=== PATIENT | male | born 1940 | race Caucasian/White ===

== ENCOUNTER 2017-05-10 10:19 | Observation (INO) | payer MEDICARE, BC ==
--- NOTE | 2017-05-10 11:13 | RAD ---
PORTABLE AP CHEST: Date: 05/10/17 HISTORY: Chest pain. FINDINGS: Cardiac silhouette is magnified by projection. Pulmonary vasculature is within normal limits. Lungs are clear. Thoracic aorta I mildly ectatic. Osseous structures are intact. IMPRESSION: No acute cardiopulmonary process. POS: [facility]
[2017-05-10 11:39] LABS: #Eosinphils 0.1 thou/uL (0.0-0.7); #Lymphocytes 1.2 thou/uL (1.20-3.40); #Monocytes 0.3 thou/uL (0.11-0.59); #Neutrophils 2.5 thou/uL (1.40-6.50); %Basophils 0.1 % (0.0-1.0); %Eosinophils 1.3 % (0.0-10.0); %Lymphocytes 28.5 % (21.0-51.0); %Monocytes 8.4 % (0.0-10.0); Hematocrit 45.2 % (42.0-52.0); Mean Platelet Volume 7.3 fL (7.4-10.4); Red Blood Cell (RBC) Count 4.51 mill/uL (4.70-6.10); White Blood Cell (WBC) Count 4.1 thou/uL (4.8-10.8)
[2017-05-10 12:02] LABS: ALT (SGPT) 27 U/L (8-55); AST (SGOT) 26 U/L (5-34); Alkaline Phosphatase 71 U/L (40-150); Anion Gap 12 mmol/L (10-20); BUN (Urea Nitrogen) 11 mg/dL (8.4-25.7); Bilirubin, Total 1.2 mg/dL (0.2-1.2); CK (CPK) 201 U/L (30-200); Calc. Creatinine Clearance 0 mL/min (70-130); Calcium 9.3 mg/dL (7.8-10.44); Carbon Dioxide 24 mmol/L (23-31); Chloride 108 mmol/L (98-107); Estimated GFR-MDRD 75; Globulin 2.9 g/dL (2.4-3.5); Lipase 24 U/L (8-78); Protein, Total 7.3 g/dL (5.8-8.1)
[2017-05-10 12:06] LABS: Troponin I Less than 0.010 ng/mL (< 0.028)
[2017-05-10] MEDS ORDERED: Ondansetron HCl/PF 4 MG/2 ML Vial IVP PRN ×2 (14:17→17:37)
[2017-05-10] MEDS ORDERED: Ondansetron ODT 4 MG TAB SL PRN (14:17)
[2017-05-10] MEDS ORDERED: Acetaminophen 325 MG TAB PO PRN ×2 (14:17→17:37)
[2017-05-10 15:13] LABS: Troponin I Less than 0.010 ng/mL (< 0.028)
[2017-05-10 15:31] VITALS: BMI 27.1
[2017-05-10] MEDS ORDERED: Bisacodyl 5 MG TAB PO PRN (17:37)
[2017-05-10] MEDS ORDERED: Ondansetron ODT 4 MG TAB PO PRN (17:37)
[2017-05-10] MEDS ORDERED: Nitroglycerin 0.4 MG TAB (25 Tab Bottle) PO PRN (17:37)
[2017-05-10 18:15] LABS: Troponin I Less than 0.010 ng/mL (< 0.028)
[2017-05-10] MEDS: Docusate 100 MG CAP PO SCH (20:22)
[2017-05-10] MEDS: Famotidine 20 MG TAB PO SCH (20:22)
--- NOTE | 2017-05-11 01:45 | CON ---
DATE OF CONSULTATION: 05/10/2017 REFERRING PROVIDER: Dr. Kj Taylor. REASON FOR CONSULTATION: Left hand weakness. HISTORY OF PRESENT ILLNESS: Mr. Ding is a pleasant 76-year-old male who has been concer valentine for evaluation of left-hand weakness. The patient reports that about a week ago, he started not icing pain on the left side of his chest. He states that there were no exacerbating factors for the pain. He also notes that the pain would get better after he eats. He says that he exercises on a daily basis and when he would run or jog or lift weights, he would not have any chest pain. The andreina n was more common when he would lie down on his back or on his left side and it would get better aft er when he turns toward his right side. He states that on Wednesday he started noticing weakness in his left hand. He was using chalk cutter to clip his nails and noticed that he was not able to use t he chalk cutter to press to cut the nails on his right hand. Today in the ER, he was noted that he w as not able to oppose his thumb to the fifth digit and I am being asked to further evaluate for this left-hand weakness. He denies headaches, vision changes, diplopia, ptosis, numbness, tingling in u pper or lower extremities. He denies any weakness in the right upper extremity or both lower extrem ities. He denies difficulty with balance, gait or difficulty with bowel or bladder. PAST MEDICAL HISTORY: Significant for high cholesterol. PAST SURGICAL HISTORY: Significant for right knee surgery and right arm surgery. SOCIAL HISTORY: Denies smoking, alcohol use, or illicit drug use. He is . He is retired. CURRENT MEDICATIONS: Please review MAR. ALLERGIES: No known drug allergies. FAMILY HISTORY: Noncontributory. REVIEW OF SYSTEMS: As mentioned above in the HPI, otherwise negative. PHYSICAL EXAMINATION: VITAL SIGNS: Blood pressure of 162/81, pulse of 66, temperature of 98.5, respirations of 16, O2 sat s of 93% on room air. GENERAL: Well-developed, well-nourished male in no apparent distress. RESPIRATORY: Clear to auscultation bilaterally. CARDIOVASCULAR: Regular rate and rhythm. NEUROLOGIC: Mental status: The patient is awake, alert, oriented x3. Speech and language: Fluent speech. Cranial nerves: Pupils are 3 mm and reactive. Visual castillo are intact. Extraocular mus cles are intact. No nystagmus is noted. Face is symmetric. Tongue and uvula are midline. Motor e xam showed normal tone and bulk with 5/5 strength in both upper and lower extremities except left AP B weakness was noted. He was also not able to oppose his thumb. Sensory: Sensation is intact and symmetric. Deep tendon reflexes: 2+ reflexes in both upper and lower extremities. Babinski: Plan tar responses flexion bilaterally. Coordination intact to [id number] tapping bilaterally. Maria Antonia's sign is negative. Gait and Romberg are normal. LABORATORY DATA: I reviewed which included CBC, CMP, CPK, troponin, CK-MB, which is significant for WBC of 4.1. CPK of 201, otherwise unremarkable. IMPRESSION: 1. Left-hand weakness. 2. Left-sided chest pain. Mr. Ding is a pleasant 76-year-old male who presented with a 1-week history of left-side d chest pain and 2-3 day history of left-hand weakness. Based on the description of his symptoms, t he chest pain and the hand weakness are likely not associated with each other. Given the fact that he described the pain that tends to go away with eating food, it may be that he may have referred pa in from acid reflux. I will let Hospitalist further evaluate for cardiac chest pain to rule out car diac etiology as a cause for his symptoms. He did have left abductor pollicis brevis and opponens p ollicis weakness on the exam. Otherwise, the exam was unremarkable. This may be suggestive of a pe ripheral nerve injury. I would obtain MRI of his spine without contrast to rule out any acute cervi kit spine pathology; however, this is less likely be the cause. I have explained to him that obtain ing an EMG would not be useful at this time as his symptoms have been acute and EMG takes 2-3 weeks to show any abnormalities and thus I would obtain EMG as an outpatient in 3 to 4 weeks from now. If the MRI cervical spine is unremarkable, the patient can be followed up in my clinic in 3-4 weeks fo r EMG nerve conduction study of left upper extremity. Thank you for your consultation.
[2017-05-11 04:29] LABS: #Eosinphils 0.2 thou/uL (0.0-0.7); #Lymphocytes 1.9 thou/uL (1.20-3.40); #Monocytes 0.6 thou/uL (0.11-0.59); #Neutrophils 2.1 thou/uL (1.40-6.50); %Basophils 0.8 % (0.0-1.0); %Eosinophils 3.7 % (0.0-10.0); %Lymphocytes 39.5 % (21.0-51.0); %Monocytes 11.7 % (0.0-10.0); Hematocrit 41.5 % (42.0-52.0); Mean Platelet Volume 7.4 fL (7.4-10.4); Red Blood Cell (RBC) Count 4.12 mill/uL (4.70-6.10); White Blood Cell (WBC) Count 4.8 thou/uL (4.8-10.8)
[2017-05-11 04:40] LABS: Anion Gap 12 mmol/L (10-20); BUN (Urea Nitrogen) 18 mg/dL (8.4-25.7); Calc. Creatinine Clearance 65 mL/min (70-130); Calcium 9.2 mg/dL (7.8-10.44); Carbon Dioxide 24 mmol/L (23-31); Chloride 109 mmol/L (98-107); Estimated GFR-MDRD 68
--- NOTE | 2017-05-11 06:01 | HP ---
PRIMARY CARE PHYSICIAN: Dr. Garner. CHIEF COMPLAINT: Chest pain and hand weakness. HISTORY OF PRESENT ILLNESS: This is a 76-year-old white male with a past medical history significan t for mild hypercholesterolemia. He reports an onset of left-sided aching chest pain on and off for the last 4-5 days. The patient reports that 2 days ago he also noted weakness in his left hand whi le trying to clip his nails. He was unable to do this with his left hand and has had trouble doing other activities with left hand as well. The pain in his chest comes and goes and it is not related to any activities. It is not specifically worse with standing or lying down. He is able to contin ue doing his normal jogging without any problems. It did seem to get better sometimes when he ate t hings, but other times it would not improve at all. Maximum severity was 5-6 out of 10, currently i t is 1 out of 10 in the hospital. The patient also was noted to have significantly elevated blood p ressure in the 170s to 180s and normally he does not run any higher than 140 systolic. So he came i nto the hospital for evaluation. In the Emergency Room, he was noted to be hypertensive with a mild bradycardia. No other vital sign abnormalities. PAST MEDICAL HISTORY: 1. Hypercholesterolemia. 2. Hypothyroidism. PAST SURGICAL HISTORY: 1. Right patellar tendon repair. 2. Right forearm surgery with placement. SOCIAL HISTORY: No tobacco, alcohol, or illicit drug use. Patient is a former professor at [employer]. He is and lives with his . FAMILY HISTORY: He has some family members with heart disease in their 70s. No one with early hear t disease. ALLERGIES: No known drug allergies. CURRENT MEDICATIONS: 1. Atorvastatin 10 mg daily. 2. Aspirin 81 mg daily. 3. Tramadol as needed for pain. 4. Levothyroxine 88 mcg daily. REVIEW OF SYSTEMS: Constitutional: No fevers, no chills, no weight changes. Eyes: No double vision or blurred vision . ENT: No congestion, drainage or sore throat. Cardiovascular: See HPI. No palpitations or raci ng heart. Pulmonary: No coughing, wheezing or shortness of breath. Gastrointestinal: No abdomina l pain, nausea, vomiting or diarrhea. Genitourinary: No dysuria or hematuria. Musculoskeletal: Se e HPI. No muscle aches or joint pains. Neurologic: See HPI. No focal symptoms besides his left h and weakness. Psychiatric: No depression or anxiety. No significant stressors recently. PHYSICAL EXAMINATION: VITAL SIGNS: Blood pressure 162/81, pulse 66, respirations 16, O2 sat 93% on room air, temperature 98.5. GENERAL: This is a well-developed, well-nourished, white male in no apparent distress. Mood and af fect appropriate, alert and oriented x3. HEENT: Pupils equal, round, and reactive to light. Extraocular movements intact. Oropharynx clear without lesions, erythema or exudate. NECK: Supple, no lymphadenopathy, no thyroid nodules or enlargement, no JVD. HEART: Regular rate and rhythm, no murmurs, rubs or gallops. No chest wall tenderness to palpation . LUNGS: Clear to auscultation bilaterally, no wheezes, crackles or rhonchi. ABDOMEN: Soft, nontender to palpation, normoactive bowel sounds, no hepatosplenomegaly or other mas ses. EXTREMITIES: No clubbing, cyanosis or edema. NEUROLOGIC: The patient has 2+ deep tendon reflexes in all extremities. Intact sensation in all ex tremities. He does have marked weakness of his left thumb, especially in opposition. He is unable to bring it all the way to pressing his fourth or fifth digits, and he seems to hold it cocked at a funny angle. No sensation loss and no loss of strength in the muscles of the hand. SKIN: No rashes or other lesions. PSYCHIATRIC: Alert and oriented x3, normal mood and affect. LABORATORY DATA: CBC grossly within normal limits except for mild of 100 and white blood cell count is 4.1. Complete metabolic panel was notable only for a chloride of 108 and creatinine kinas e is mildly elevated at 201. His CK-MB was normal. His troponin is negative x3. EKG: Patient schwartz s have a right bundle branch block. No other significant abnormalities. ASSESSMENT: 1. Chest pain, atypical in nature; however, the patient has significant hypertension and hyperchole sterolemia as well as his age and it is reasonable to do a stress test on him to make sure he does n ot have any cardiac etiology to this chest pain. 2. Weakness in the left hand. Seems to be a fairly specific and neurologic deficits with decrease in opposition possibly of a problem with his median nerve. I wonder if there is some association wi th this pain up into his left upper outer chest. There is also always the possibility of some sort of stroke manifestations given his elevated high blood pressure. We will have put patient on full d ose aspirin. We will also have Dr. Kirstin Middleton come by and evaluate the patient and see if he needs any further neurological workup or if this is an isolated neuropathy. 3. Hypertension. We will give patient p.r.n. antihypertensive medications for severely elevated hy pertension and if neurologic ischemic disease is ruled out, can start him on some blood pressure med ications before discharge. 4. Hypercholesterolemia. Resume statins. 5. Gastrointestinal prophylaxis. Put the patient on Pepcid twice a day. 6. Deep venous thrombosis prophylaxis. Put the patient on sequential compression devices and TEDs while in bed and on low dose Lovenox. CODE STATUS: Patient is a FULL CODE. 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
[2017-05-11] MEDS ORDERED: Levothyroxine Sodium 88 MCG TAB PO SCH (09:00)
[2017-05-11] MEDS ORDERED: Aspirin 325 MG TAB PO SCH (09:00)
[2017-05-11] MEDS ORDERED: Atorvastatin Calcium 10 MG TAB PO SCH (09:00)
[2017-05-11] MEDS ORDERED: traMADol HCl 50 MG TAB PO SCH (09:00)
[2017-05-11] MEDS ORDERED: Enoxaparin Sodium 40 MG/0.4 ML SYRINGE SC SCH (09:00)
[2017-05-11 12:18] VITALS: TEMP 97.7
[2017-05-11] MEDS: Famotidine 20 MG TAB PO SCH (12:37)
[2017-05-11] MEDS: hydrALAZINE 20 MG/ML VIAL SLOW IVP PRN ×2 (12:37→14:49)
[2017-05-11] MEDS: Docusate 100 MG CAP PO SCH (12:46)
--- NOTE | 2017-05-11 14:47 | NM ---
NUCLEAR MEDICINE CARDIAC STRESS TEST WITH EJECTION FRACTION: Date: 05/11/17 HISTORY: Chest pain. Hypertension. Dyslipidemia. COMPARISON: None. TECHNIQUE: Stress and rest was performed after the intravenous administration of 29 and 9 mCi technedtium-99m s estamibi. FINDINGS: No evidence of scar or ischemia. Normal wall motion. Ejection fraction is calculated at 77%. IMPRESSION: Normal examination and ejection fraction. POS: [facility]
[2017-05-11 15:35] VITALS: BP 153/75
--- NOTE | 2017-05-11 18:56 | DIS ---
DATE OF ADMISSION: 05/10/2017 DATE OF DISCHARGE: 05/11/2017 PRIMARY CARE PHYSICIAN: Krzysztof Garner M.D. DISCHARGE DIAGNOSES: 1. Chest pain. 2. Left upper extremity weakness, likely secondary to peripheral nerve injury. CONDITION OF PATIENT AT THE TIME OF DISCHARGE: Stable. I assessed Mr. Ding on the day of dischar . He denies any chest pain or shortness of breath. Vital signs are stable. S1 and S2 are heard, regular. Lungs are clear to auscultation bilaterally. He is unable to oppose his left thumb. DISCHARGE MEDICATIONS: No changes were made to his preadmission home medications as dictated on his tory and physical note from 05/10/2017. HOSPITAL COURSE: Mr. Ding is a pleasant 76-year-old gentleman who was admitted to [facility] on 05/10/2017 for chest pain as well as left-hand weakness. He was seen by neuro logist, Dr. Kirstin Middleton. He is advised MRI of the cervical spine as outpatient. He is also advised to follow up with Dr. Middleton in 3-4 weeks to have EMG studies as outpatient. In terms of chest pain, his chest pain resolved. He underwent nuclear stress test. Preliminary rep ort indicates that it is normal, with an estimated left ventricular ejection fraction of 75%. He is being discharged home in a stable condition. He also had a normal D-dimer during this hospitalization. On the day of discharge, he has a white c ount of 4800, hemoglobin 14.4, platelet count 178,000, normal sodium, normal potassium, and normal c reatinine. He had an unremarkable liver profile during this admission. CK was slightly elevated at 201 at the time of admission. He is advised to follow up with his primary care physician's office in 3-5 days. He is also advised to have an MRI of the cervical spine as outpatient and to follow up with Dr. Middleton. Many thanks for allowing me to participate in your patient's care. Please feel free to contact me w ith any questions or concerns. DISCHARGE DESTINATION: Home.
== END 2017-05-11 15:38 | disposition home or self-care (01) ==
LOC: ERS 10:19 → 2SW 14:09
PROVIDERS: ADMIT Emergency Medicine; ATTEND Emergency Medicine
DX: R07.89 Other chest pain (principal); R53.1 Weakness; E78.00 Pure hypercholesterolemia, unspecified; E03.9 Hypothyroidism, unspecified; Z79.82 Long term (current) use of aspirin; Z79.899 Other long term (current) drug therapy; Z98.890 Other specified postprocedural states
CPT/HCPCS: 71010; 78452; 80048; 80053; 82550; 82553; 83690; 84484 ×2; 85025 ×2; 85379; 93005; 93017; 94760 ×2; 96374; 96376; 97139; 99285; A9500; G0378; 36415; J0360

== ENCOUNTER 2017-06-28 07:45 | Outpatient (CLI) | payer MEDICARE, BC ==
--- NOTE | 2017-06-28 10:12 | MRI ---
MRI CERVICAL SPINE WITHOUT CONTRAST: Multiplanar, multisequential imaging cervical spine obtained. HISTORY: Neck pain. Left shoulder pain with numbness to the left upper extremity. FINDINGS: Cervical vertebrae maintain normal height and alignment. Mild degenerative disk changes with loss of disk space seen at C4-5 and C5-6. Vertebral body signal is normally preserved. At C3-4, mild disk bulge and spondylitic change flattens the thecal sac and mildly effaced the anteri or subarachnoid space. No impingement on the cord. No foraminal encroachment. At C4-5, disk bulge and spondylosis is slightly more prominent abutting the anterior cord. Mild left foraminal encroachment. At C5-6, disk bulge and spondylosis efface the anterior subarachnoid space without significant cord i mpingement. Mild left foraminal encroachment due to the uncinate hypertrophy. At C6-7, no significant disk bulge. Very mild spondylitic change. The anterior subarachnoid space i s preserved. Cervical cord signal is normal. IMPRESSION: Mild posterior disk bulge and spondylosis at C3-4, C4-5, and C5-6 as described above. POS: [facility]
--- NOTE | 2017-06-28 10:38 | MRI ---
BRAIN MRI WITHOUT CONTRAST: DATE: 06/28/17. COMPARISON: None. HISTORY: Left-sided shoulder pain, finger numbness. TECHNIQUE: Multiplanar, multisequence MR imaging of the brain is obtained without contrast. FINDINGS: The diffusion weighted imaging demonstrates no evidence for acute infarction. The axial gradient echo imaging demonstrates no evidence for intracranial hemorrhage. There is multifocal increased T2 and FLAIR signal scattered throughout the periventricular, deep, and subcortical white matter, evidence of significant small-vessel disease. The regional bone marrow signal intensity appears grossly unremarkable. Axial T2 weighted imaging demonstrates patency of the arterial flow voids at the axial level of the s kull base. The paranasal sinuses and mastoid air cells appear grossly unremarkable. IMPRESSION: Significant small-vessel disease with no evidence for intracranial hemorrhage or acute infarction. POS: [facility]
== END 2017-06-28 07:46 | disposition home or self-care (01) ==
LOC: SCSMRI 07:45
PROVIDERS: ATTEND Neurological Surgery
DX: M47.812 Spondylosis without myelopathy or radiculopathy, cervical region (principal); M62.81 Muscle weakness (generalized); M50.11 Cervical disc disorder with radiculopathy, high cervical region; I67.89 Other cerebrovascular disease
CPT/HCPCS: 70551; 72141

== ENCOUNTER 2018-06-08 09:41 | Outpatient (CLI) | payer MEDICARE, BC ==
--- NOTE | 2018-06-08 12:03 | CT ---
BRAIN CT WITHOUT IV CONTRAST: History: 77-year-old male with history of intracranial hemorrhage. Follow up scope. Comparison: Brain MRI 06-28-17. FINDINGS: There is an approximately 2.3 cm diameter focal area of decreased attenuation density in the right ce ntrum semiovale and periventricular region, evidence for an evolving infarct. No recent prior exams a vailable for comparison. No focal mass or midline shift. No acute hemorrhage. Sinuses and mastoids ar e clear of acute process. IMPRESSION: Poorly defined low attenuation area in the right centrum semiovale and periventricular region, eviden ce for an evolving infarct. No mass or acute hemorrhage. POS: [facility]
== END 2018-06-08 09:42 | disposition home or self-care (01) ==
LOC: TBSIIMAG 09:41
PROVIDERS: ATTEND Neurological Surgery
DX: I62.9 Nontraumatic intracranial hemorrhage, unspecified (principal)
CPT/HCPCS: 70450

== ENCOUNTER 2021-11-24 10:54 | Outpatient (CLI) | payer MEDICARE, BC ==
[2021-11-24 20:31] LABS: SARS-CoV-2 PCR by NAA Not Detected (NotDetected)
== END 2021-11-24 10:55 | disposition home or self-care (01) ==
LOC: LABBT 10:54
PROVIDERS: ATTEND Ophthalmology Retina Specialist
DX: H35.372 Puckering of macula, left eye (principal); Z20.822 Contact with and (suspected) exposure to COVID-19
CPT/HCPCS: U0003; U0005

== ENCOUNTER 2021-11-27 06:25 | Day surgery (SDC) | payer MEDICARE, BC ==
[2021-11-25 14:58] VITALS: BMI 25.0
[~2021-11-27 06:25] MED LIST: Fluorouracil 100 MG, Enoxaparin Sodium 25 MG, EPINEPHrine 0.3 MG in Ophthalmic Irrigati... IRR SCH
[2021-11-27] MEDS ORDERED: Phenylephrine 2.5% Ophth Soln 5 ML BOT ONE (06:32)
[2021-11-27] MEDS ORDERED: Cyclopentolate 1% Opth Drop 2 ML BOT ONE (06:32)
[2021-11-27] MEDS ORDERED: fentaNYL Citrate/PF 100 MCG/2 ML SYRINGE ONE (06:38)
[2021-11-27] MEDS ORDERED: Enoxaparin Sodium 30 MG/0.3 ML SYRINGE ONE (08:00)
[2021-11-27] MEDS ORDERED: PROPOFOL 200 MG/20 ML VIAL ONE (08:00)
[2021-11-27] MEDS ORDERED: CEFAZOLIN 1 GM VIAL ONE (08:00)
[2021-11-27] MEDS ORDERED: Indocyanine Green 25 MG/10 ML VIAL ONE (08:00)
[2021-11-27] MEDS ORDERED: Lidocaine 4% PF 5 ML AMP ONE (08:00)
[2021-11-27] MEDS ORDERED: Bupivacaine 0.75% 10 ML VIAL ONE (08:00)
[2021-11-27] MEDS ORDERED: Triamcinolone 40 MG/ML VIAL ONE (08:00)
[2021-11-27] MEDS ORDERED: Lidocaine 1% PF 5 ML VIAL ONE ×2 (08:00)
[2021-11-27] MEDS ORDERED: Maxitrol 0.1% Opth Oint 3.5 GM TUBE ONE (08:00)
== END 2021-11-27 09:42 | disposition home or self-care (01) ==
LOC: SDC 06:25
PROVIDERS: ATTEND Ophthalmology Retina Specialist
PROC: 08T53ZZ Resection of Left Vitreous, Percutaneous Approach (ICD-10-PCS; principal; 2021-11-27)
PROC: 08NF3ZZ Release Left Retina, Percutaneous Approach (ICD-10-PCS; 2021-11-27)
DX: H35.372 Puckering of macula, left eye (principal); Z79.890 Hormone replacement therapy; Z79.899 Other long term (current) drug therapy
CPT/HCPCS: J0171; J0690; J1650; J2704; J3301; J3490; J9190

== ENCOUNTER 2024-07-30 11:34 | Inpatient (IN) | payer BC, MEDICARE ==
[~2024-07-30 11:34] MED LIST changes: -Fluorouracil 100 MG, Enoxaparin Sodium 25 MG, EPINEPHrine 0.3 MG in Ophthalmic Irrigati... IRR SCH; +Iopamidol-370 76% 500 ML MDV (1 ML CHARGE) ONE
[2024-07-30 12:12] LABS: #Basophils 0.03 10x3/uL (0.0-0.2); %Basophils 0.5 % (0.0-1.0); %Eosinophils 2.2 % (0.0-10.0); %Lymphocytes 22.5 % (21.0-51.0); %Monocytes 11.9 % (0.0-10.0); %Neutrophils 62.6 % (42.0-75.0); Hematocrit 36.3 % (42.0-52.0); Hemoglobin 12.1 g/dL (14.0-18.0); Mean Corpuscular HGB CONC 33.3 g/dL (32.0-36.0); Mean Corpuscular Hemoglobin 32.1 pg (27.0-31.0); Mean Corpuscular Volume 96.3 fL (78.0-98.0); Mean Platelet Volume 9.2 fL (7.4-10.4); Platelet Count 208 10x3/uL (130-400); RBC Distribution Width 12.4 % (11.5-14.5); Red Blood Cell (RBC) Count 3.77 mill/uL (4.70-6.10)
[2024-07-30 12:25] LABS: INR-International Normal Ratio 1.1; PTT 27.6 sec (22.9-36.1); Prothrombin Time 14.3 sec (12.0-14.7)
[2024-07-30 12:33] LABS: ALT (SGPT) 18 U/L (8-55); AST (SGOT) 18 U/L (5-34); Albumin 3.6 g/dL (3.4-4.8); Alkaline Phosphatase 86 U/L (40-110); Anion Gap 13 mmol/L (10-20); BUN (Urea Nitrogen) 19 mg/dL (8.4-25.7); Bilirubin, Total 0.9 mg/dL (0.2-1.2); Calc. Creatinine Clearance 0 mL/min (70-130); Calcium 8.7 mg/dL (7.8-10.44); Carbon Dioxide 21 mmol/L (23-31); Chloride 111 mmol/L (98-107); Estimated GFR 64; Globulin 2.8 g/dL (2.4-3.5); Glucose 113 mg/dL (83-110); Potassium 4.1 mmol/L (3.5-5.1); Protein, Total 6.4 g/dL (5.8-8.1); Sodium 141 mmol/L (136-145)
[2024-07-30 12:45] LABS: Troponin I 0.242 ng/mL (< 0.028)
[2024-07-30] MEDS ORDERED: Aspirin Chewable 81 MG TAB ONE (13:13)
[2024-07-30] MEDS ORDERED: Enoxaparin 80 MG (0.8 mL) SYRINGE ONE (13:14)
[2024-07-30] MEDS ORDERED: Senokot S 8.6-50 MG TAB PO PRN ×2 (13:37→16:41)
[2024-07-30] MEDS ORDERED: Acetaminophen 325 MG TAB PO PRN (13:37)
[2024-07-30] MEDS ORDERED: Ondansetron PF 4 MG/2 ML Vial IVP PRN (13:37)
[2024-07-30] MEDS ORDERED: Ondansetron ODT 4 MG TAB PO PRN (13:37)
[2024-07-30] MEDS: Lactated Ringer's 1,000 ML IV SCH (15:33)
[2024-07-30 15:38] VITALS: BMI 26.8
[2024-07-30 16:30] LABS: Critical Call Chem Troponin I RESULT DECREASING; Troponin I 0.203 ng/mL (< 0.028)
[2024-07-30] MEDS: Pantoprazole 40 MG DR.TAB PO SCH (17:30)
[2024-07-30 18:35] LABS: Troponin I 0.188 ng/mL (< 0.028)
[2024-07-30] MEDS: Tamsulosin HCl 0.4 MG CAP PO SCH (21:55)
[2024-07-30] MEDS: Atorvastatin Calcium 20 MG TAB PO SCH (21:55)
[2024-07-30] MEDS: Enoxaparin 80 MG (0.8 mL) SYRINGE SC SCH (21:56)
[2024-07-30] MEDS: TICAGRELOR 90 MG TABLET PO SCH (21:58)
[2024-07-30] MEDS: FLU (Fluad Triv) TS24-25 (65UP)/MF59C/PF 45 MCG/0.5 ML Syringe IM ONE (21:58)
[2024-07-31 04:10] LABS: #Basophils 0.04 10x3/uL (0.0-0.2); %Basophils 0.7 % (0.0-1.0); %Eosinophils 3.2 % (0.0-10.0); %Lymphocytes 26.4 % (21.0-51.0); %Monocytes 11.4 % (0.0-10.0); %Neutrophils 58.1 % (42.0-75.0); Hematocrit 33.7 % (42.0-52.0); Hemoglobin 11.2 g/dL (14.0-18.0); Mean Corpuscular HGB CONC 33.2 g/dL (32.0-36.0); Mean Corpuscular Volume 96.3 fL (78.0-98.0); Mean Platelet Volume 9.4 fL (7.4-10.4); Platelet Count 189 10x3/uL (130-400); RBC Distribution Width 12.4 % (11.5-14.5)
[2024-07-31 04:24] LABS: Anion Gap 11 mmol/L (10-20); BUN (Urea Nitrogen) 17 mg/dL (8.4-25.7); Calc. Creatinine Clearance 60 mL/min (70-130); Calcium 8.4 mg/dL (7.8-10.44); Carbon Dioxide 21 mmol/L (23-31); Chloride 111 mmol/L (98-107); Estimated GFR 74; Glucose 89 mg/dL (83-110); Potassium 3.9 mmol/L (3.5-5.1); Sodium 139 mmol/L (136-145)
[2024-07-31] MEDS: Levothyroxine Sodium 88 MCG TAB PO SCH (06:02)
[2024-07-31] MEDS: Aspirin 81 mg Enteric Coated Tablet PO SCH (09:20)
[2024-07-31] MEDS: Dutasteride 0.5 MG CAP PO SCH (09:21)
[2024-07-31] MEDS: Pantoprazole 40 MG DR.TAB PO SCH (09:21)
[2024-07-31] MEDS: Timolol 0.5% Ophth Soln 5 ml Bottle L EYE SCH (09:21)
[2024-07-31] MEDS ORDERED: Iopamidol-370 76% 500 ML MDV (1 ML CHARGE) ONE (12:14)
[2024-08-01 03:58] LABS: #Basophils 0.04 10x3/uL (0.0-0.2); %Basophils 0.5 % (0.0-1.0); %Eosinophils 3.2 % (0.0-10.0); %Lymphocytes 20.4 % (21.0-51.0); %Monocytes 10.2 % (0.0-10.0); %Neutrophils 65.5 % (42.0-75.0); Hematocrit 35.7 % (42.0-52.0); Hemoglobin 12.1 g/dL (14.0-18.0); Mean Corpuscular HGB CONC 33.9 g/dL (32.0-36.0); Mean Corpuscular Hemoglobin 31.9 pg (27.0-31.0); Mean Corpuscular Volume 94.2 fL (78.0-98.0); Mean Platelet Volume 9.2 fL (7.4-10.4); Platelet Count 207 10x3/uL (130-400); RBC Distribution Width 12.3 % (11.5-14.5); Red Blood Cell (RBC) Count 3.79 mill/uL (4.70-6.10)
[2024-08-01 04:18] LABS: Anion Gap 12 mmol/L (10-20); BUN (Urea Nitrogen) 12 mg/dL (8.4-25.7); Calc. Creatinine Clearance 58 mL/min (70-130); Calcium 8.9 mg/dL (7.8-10.44); Carbon Dioxide 24 mmol/L (23-31); Chloride 110 mmol/L (98-107); Estimated GFR 71; Glucose 93 mg/dL (83-110); Magnesium 1.8 mg/dL (1.6-2.6); Sodium 142 mmol/L (136-145)
[2024-08-01] MEDS: Tamsulosin HCl 0.4 MG CAP PO SCH (09:21)
[2024-08-01 12:05] VITALS: BP 116/64; TEMP 97.8
== END 2024-08-01 16:17 | disposition home or self-care (01) | DRG 281 ==
LOC: ERS 11:34 → 2SE 13:37 → OBSVTOIN 07-31 17:09
PROVIDERS: ADMIT Student in an Organized Health Care Education/Training Program; ATTEND Internal Medicine
DX: I95.1 Orthostatic hypotension (principal); I69.354 Hemiplegia and hemiparesis following cerebral infarction affecting left non-dominant side; I21.A1 Myocardial infarction type 2; E03.9 Hypothyroidism, unspecified; I10 Essential (primary) hypertension; N40.0 Benign prostatic hyperplasia without lower urinary tract symptoms; G21.4 Vascular parkinsonism; I25.10 Atherosclerotic heart disease of native coronary artery without angina pectoris; M19.90 Unspecified osteoarthritis, unspecified site; Z95.5 Presence of coronary angioplasty implant and graft
CPT/HCPCS: 36415; 70496; 70498; 70551; 71275; 80048; 80053; 83735; 83880; 84443; 84484; 85025; 85379; 85610; 85730; 93005; 93306; 93970; 96372; 99285; G0378; J1650; J7120; Q9967